=== PATIENT | female | born 1995 | race Caucasian/White ===

== ENCOUNTER 2017-12-17 20:38 | Emergency (ER) | payer OTHER ==
[~2017-12-17] VITALS: Ht 170.2 cm; Wt 93.0 kg
[2017-12-17 20:49] VITALS: Ht 170.2 cm; Wt 93.0 kg
[2017-12-17 23:34] VITALS: BP 144/64
== END 2017-12-17 23:34 | disposition home or self-care (01) ==
LOC: ED 20:38
DX: M25.562 Pain in left knee (principal)

== ENCOUNTER 2018-10-02 20:22 | Emergency (ER) | payer OTHER ==
[~2018-10-02] VITALS: Ht 165.1 cm; Wt 114.3 kg
[2018-10-02 20:43] VITALS: Ht 165.1 cm; Wt 114.3 kg
[2018-10-02 22:15] VITALS: BP 127/79
== END 2018-10-02 22:18 | disposition home or self-care (01) ==
LOC: ED 20:22
DX: J06.9 Acute upper respiratory infection, unspecified (principal)

== ENCOUNTER 2019-02-08 23:24 | Emergency (ER) | payer OTHER ==
[~2019-02-08] VITALS: Ht 167.6 cm; Wt 122.7 kg
[2019-02-08 23:29] VITALS: Ht 167.6 cm; Wt 122.7 kg
[2019-02-09 00:07] VITALS: BP 130/77
== END 2019-02-09 00:07 | disposition home or self-care (01) ==
LOC: ED 23:24
DX: H60.91 Unspecified otitis externa, right ear (principal)